=== PATIENT | female | born 1985 ===

== ENCOUNTER 2022-07-20 19:08 | Emergency (ER) | payer SELFPAY ==
[2022-07-20 21:04] LABS: CORONAVIRUS COVID-19 NAA POSITIVE (NEGATIVE); RESPIRATORY SYNCYTIAL VIR NAA NEGATIVE (NEGATIVE)
== END 2022-07-20 21:43 | disposition home or self-care (01) ==
LOC: LL.ED 19:08
DX: U07.1 COVID-19 (principal); F17.210 Nicotine dependence, cigarettes, uncomplicated
CPT/HCPCS: 0241U; 99283